=== PATIENT | male | born 1965 | race Asian ===

== ENCOUNTER 2017-05-19 22:51 | Emergency (ER) | payer MEDICAID, OTHER ==
[2017-05-20 00:11] VITALS: BP 119/81
== END 2017-05-20 01:31 | disposition home or self-care (01) ==
LOC: ER 22:51 → EDBD 22:51 → ER 05-20 01:31
DX: T16.1XXA Foreign body in right ear, initial encounter (principal); X58.XXXA Exposure to other specified factors, initial encounter; Y93.89 Activity, other specified; Y92.89 Other specified places as the place of occurrence of the external cause; Y99.8 Other external cause status